=== PATIENT | female | born 1990 | race Caucasian/White ===

== ENCOUNTER 2019-03-14 12:22 | Emergency (ER) | payer OTHER ==
[~2019-03-14] VITALS: Ht 165.1 cm; Wt 72.6 kg
--- NOTE | 2019-03-14 13:09 | NUR ---
at bedside to examine patient
[2019-03-14] MEDS ORDERED: IBUPROFEN 600 MG TABLET PO ONE (13:15)
[2019-03-14] MEDS ORDERED: DIAZEPAM 2 MG TABLET PO ONE (13:15)
[2019-03-14] MEDS ORDERED: DIAZEPAM 5 MG TABLET ONE (13:20)
[2019-03-14] MEDS ORDERED: IBUPROFEN 600 MG TABLET ONE (13:20)
--- NOTE | 2019-03-14 13:28 | NUR ---
Patient discharged to home in stable conditon. Written and verbal after care instructions given. Patient verbalizes understanding of instructions. ALL BELONGINGS W/ PT. PT SELF-AMBULATED W/O DIFFICULTY.
[2019-03-14 13:29] VITALS: BP 113/68
--- NOTE | 2019-03-14 13:30 | NUR ---
PT STATED SHE DOES NOT DRIVE, SHE WILL BE WALKING HOME.
== END 2019-03-14 13:31 | disposition home or self-care (01) ==
LOC: ER 12:22
DX: M54.5 Low back pain (principal); J45.909 Unspecified asthma, uncomplicated; Z88.8 Allergy status to other drugs, medicaments and biological substances
CPT/HCPCS: A4663